=== PATIENT | male | born 1960 | race Caucasian/White ===

== ENCOUNTER 2017-07-05 12:10 | Emergency (ER) | payer OTHER ==
[2017-07-05] MEDS ORDERED: Sodium Chloride 0.9% 10 ML Syringe FLUSH PRN ×2 (12:46→13:31)
[2017-07-05] MEDS ORDERED: Famotidine 20 MG/2 ML SDV IVPUSH ONE (12:46)
--- NOTE | 2017-07-05 12:56 | EDM.PDOC ---
ED HPI GENERAL MEDICAL PROBLEM - General Chief Complaint: Abdominal Pain Stated Complaint: ABDOMINAL PAIN Time Seen by Provider: 07/05/17 12:50 Source of Information: Reports: Patient History Limitations: Reports: No Limitations - History of Present Illness INITIAL COMMENTS - FREE TEXT/NARRATIVE: 56-year-old male presents for evaluation and treatment of abdominal discomfort and bloating. Reports that the symptoms started on Friday night or morning. States that he feels he is "trapped gas ". He describes generalized abdominal discomfort. States that taking water fluid seemed to make things worse. His last intake was around 0700 this morning, he had some waffles, this did not seem to worsen his symptoms. No associated fevers, nausea or vomiting. No urinary symptoms. Patient reports his last colonoscopy was about a year ago. He states that he was given a clean bill of health and they did not find any polyps. He describes after surgery having what sounds to be an ileus. He states that he stayed longer after the colonscopy due to bloating. He states that this feels similar today. He denies any recent travel. Patient reports he was on antibiotics about 2 months ago for bronchitis. Patient has never had an upper endoscopy. Para patient reports he always has a mildly elevated bilirubin. Reports that this seems to be familial. Patient also reports that about 1-2 weeks ago he appreciated a mass to the right breast area. States it is not painful. Has not been evaluated for this thus far. Previous abdominal surgeries include a cholecystectomy. He also had an ERCP. This was about 15 years ago. Abdomen Pain Score (Numeric/FACES): 6 - Related Data Allergies Allergy/AdvReac Type Severity Reaction Status Date / Time Sulfa (Sulfonamide Allergy Cannot Verified 07/05/17 12:17 Antibiotics) Remember Home Meds: Home Meds Omeprazole 20 mg PO DAILY #30 cap.sr 07/05/17 [Rx] Past Medical History HEENT History: Reports: Impaired Vision Gastrointestinal History: Reports: Cholelithiasis, Other (See Below) Musculoskeletal History: Reports: Back Pain, Chronic Dermatologic History: Reports: Other (See Below) Other Dermatologic History: precancerous leasion off lip over one year ago - Past Surgical History HEENT Surgical History: Reports: Tonsillectomy GI Surgical History: Reports: Cholecystectomy, Hernia Repair/Other Social & Family History - Family History Endocrine/Metabolic: Reports: Diabetes, type II Oncologic: Reports: Bladder, Colon, Lung, Metastatic, Ovarian - Tobacco Use Smoking Status *Q: Never Smoker - Caffeine Use Caffeine Use: Reports: Coffee - Recreational Drug Use Recreational Drug Use: No ED ROS GENERAL - Review of Systems Review Of Systems: See Below Constitutional: Denies: Fever, Chills Respiratory: Denies: Shortness of Breath Cardiovascular: Denies: Chest Pain GI/Abdominal: Reports: Abdominal Pain (discomfort), Flatus (continues to pass gas), Hematochezia (x12 Friday associated with constipation). Denies: Constipation, Diarrhea, Nausea, Vomiting : Denies: Dysuria, Hematuria ED EXAM, GI/ABD - Physical Exam Exam: See Below Exam Limited By: No Limitations General Appearance: Alert, WD/WN, No Apparent Distress Respiratory/Chest: No Respiratory Distress, Lungs Clear, Normal Breath Sounds, Other (approximately 2cm in diatmeter movable, non tender, mass to the right breast at the 5 o'clock position) Cardiovascular: Normal Peripheral Pulses, Regular Rate, Rhythm, No Murmur GI/Abdominal Exam: Normal Bowel Sounds, Soft, Non-Tender, Distended. No: Guarding, Rebound Neurological: Alert, Oriented, Normal Cognition Psychiatric: Normal Affect, Normal Mood Skin Exam: Warm, Dry, Normal Color Course - Vital Signs Last Recorded V/S: Last Vital Signs Temp 36.4 C 07/05/17 12:19 Pulse 58 L 07/05/17 12:19 Resp 16 07/05/17 12:19 BP 114/71 07/05/17 12:19 Pulse Ox 96 07/05/17 12:19 - Orders/Labs/Meds Labs: Laboratory Tests 07/05/17 07/05/17 07/05/17 Range/Units 12:37 12:37 12:37 WBC 8.71 (4.23-9.07) K/mm3 RBC 5.49 (4.63-6.08) M/mm3 Hgb 16.5 (13.7-17.5) gm/L Hct 47.2 (40.1-51.0) % MCV 86.0 (79.0-92.2) fl MCH 30.1 (25.7-32.2) pg MCHC 35.0 (32.2-35.5) g/dl RDW Std Deviation 42.3 (35.1-43.9) fL Plt Count 207 (163-337) K/mm3 MPV 10.5 (9.4-12.3) fl Neutrophils % (Manual) 57 (40-60) % Band Neutrophils % 4 (0-10) % Lymphocytes % (Manual) 27 (20-40) % Atypical Lymphs % 0 % Monocytes % (Manual) 7 (2-10) % Eosinophils % (Manual) 5 (0.8-7.0) % Basophils % (Manual) 0 L (0.2-1.2) Platelet Estimate Adequate RBC Morph Comment Normal Sodium 138 (136-145) mEq/L Potassium 3.7 (3.5-5.1) mEq/L Chloride 102 (98-107) mEq/L Carbon Dioxide 29 (21-32) mEq/L Anion Gap 10.7 (5-15) BUN 16 (7-18) mg/dL Creatinine 1.1 (0.7-1.3) mg/dL Est Cr Clr Drug Dosing 75.58 mL/min Estimated GFR (MDRD) > 60 (>60) mL/min BUN/Creatinine Ratio 14.5 (14-18) Glucose 119 H (74-106) mg/dL Calcium 8.9 (8.5-10.1) mg/dL Total Bilirubin 2.2 H (0.2-1.0) mg/dL AST 30 (15-37) U/L ALT 50 (16-63) U/L Alkaline Phosphatase 75 (46-116) U/L C-Reactive Protein 1.3 H* (<1.0) mg/dL Total Protein 7.4 (6.4-8.2) g/dl Albumin 4.0 (3.4-5.0) g/dl Globulin 3.4 gm/dL Albumin/Globulin Ratio 1.2 (1-2) Lipase 250 (73-393) U/L Urine Color (Yellow) Urine Appearance (Clear) Urine pH (5.0-8.0) Ur Specific [place] (1.005-1.030) Urine Protein (Negative) Urine Glucose (UA) (Negative) Urine Ketones (Negative) Urine Occult Blood (Negative) Urine Nitrite (Negative) Urine Bilirubin (Negative) Urine Urobilinogen (0.2-1.0) Ur Leukocyte Esterase (Negative) Urine RBC (0-5) /hpf Urine WBC (0-5) /hpf Ur Epithelial Cells (0-5) /hpf Urine Bacteria (FEW) /hpf Urine Mucus (FEW) /hpf 07/05/17 Range/Units 12:55 WBC (4.23-9.07) K/mm3 RBC (4.63-6.08) M/mm3 Hgb (13.7-17.5) gm/L Hct (40.1-51.0) % MCV (79.0-92.2) fl MCH (25.7-32.2) pg MCHC (32.2-35.5) g/dl RDW Std Deviation (35.1-43.9) fL Plt Count (163-337) K/mm3 MPV (9.4-12.3) fl Neutrophils % (Manual) (40-60) % Band Neutrophils % (0-10) % Lymphocytes % (Manual) (20-40) % Atypical Lymphs % % Monocytes % (Manual) (2-10) % Eosinophils % (Manual) (0.8-7.0) % Basophils % (Manual) (0.2-1.2) Platelet Estimate RBC Morph Comment Sodium (136-145) mEq/L Potassium (3.5-5.1) mEq/L Chloride (98-107) mEq/L Carbon Dioxide (21-32) mEq/L Anion Gap (5-15) BUN (7-18) mg/dL Creatinine (0.7-1.3) mg/dL Est Cr Clr Drug Dosing mL/min Estimated GFR (MDRD) (>60) mL/min BUN/Creatinine Ratio (14-18) Glucose (74-106) mg/dL Calcium (8.5-10.1) mg/dL Total Bilirubin (0.2-1.0) mg/dL AST (15-37) U/L ALT (16-63) U/L Alkaline Phosphatase (46-116) U/L C-Reactive Protein (<1.0) mg/dL Total Protein (6.4-8.2) g/dl Albumin (3.4-5.0) g/dl Globulin gm/dL Albumin/Globulin Ratio (1-2) Lipase (73-393) U/L Urine Color Yellow (Yellow) Urine Appearance Clear (Clear) Urine pH 6.0 (5.0-8.0) Ur Specific [place] 1.015 (1.005-1.030) Urine Protein Negative (Negative) Urine Glucose (UA) Negative (Negative) Urine Ketones Negative (Negative) Urine Occult Blood 1+ H (Negative) Urine Nitrite Negative (Negative) Urine Bilirubin Negative (Negative) Urine Urobilinogen 0.2 (0.2-1.0) Ur Leukocyte Esterase Negative (Negative) Urine RBC 5-10 H (0-5) /hpf Urine WBC 0-5 (0-5) /hpf Ur Epithelial Cells Not seen (0-5) /hpf Urine Bacteria Few (FEW) /hpf Urine Mucus Not seen (FEW) /hpf Meds: Medications Discontinued Medications Generic Name Dose Route Start Last Admin Trade Name Freq PRN Reason Stop Dose Admin Diatrizoate Meglum/Diatrizoate Sod 120 ml 07/05/17 13:31 07/05/17 14:28 Gastrografin 37% PO 07/05/17 13:32 90 ml ONETIME ONE Administration Famotidine 20 mg 07/05/17 12:46 07/05/17 13:02 Pepcid IVPUSH 07/05/17 12:47 20 mg ONETIME ONE Administration Iopamidol 150 ml 07/05/17 13:31 07/05/17 14:28 Isovue-300 (61%) IVPUSH 07/05/17 13:32 125 ml ONETIME ONE Administration Sodium Chloride 10 ml 07/05/17 12:46 07/05/17 13:05 Saline Flush FLUSH 10 ml ASDIRECTED PRN Administration Keep Vein Open Sodium Chloride 10 ml 07/05/17 13:31 07/05/17 14:29 Saline Flush FLUSH 10 ml ONETIME PRN Administration IV FLUSH - Radiology Interpretation Free Text/Narrative:: CT abdomen and pelvis Technique: Multiple axial sections were obtained from above the dome of the diaphragm inferiorly through the pubic symphysis. Intravenous and oral contrast has been given. Delayed images were also obtained through the bladder. Comparison: Prior CT abdomen and pelvis exam of 08/20/11. Findings: Visualized lung bases shows nothing acute. Liver shows mild fatty infiltration. Air is identified within the common bile duct most likely relating to previous intervention at the sphincter of Chi. Previous cholecystectomy is noted. Spleen appears within normal limits. Adrenal glands show no nodule. Pancreas is within normal limits. Adrenal glands show no nodule. Aorta shows no aneurysmal dilatation. No retroperitoneal adenopathy is seen. Kidneys show symmetric contrast enhancement without hydronephrosis or mass. No mesenteric abnormalities are seen. Appendix appears within normal limits. No pelvic mass or adenopathy is seen. Incidental prostate calcifications are noted. Small fat -containing bilateral inguinal hernias are noted. Delayed images shows contrast within the bladder. Bone window settings were reviewed which show scattered degenerative change within the spine with vacuum phenomena seen within the L4-5 and L5-S1 discs. No free fluid or inflammatory change is seen. Impression: 1. Air within the common bile duct most likely representing previous intervention at the sphincter of Chi. 2. Fatty infiltration within the liver and other incidental findings. 3. Nothing acute is appreciated on CT study of the abdomen and pelvis. - Re-Assessments/Exams Free Text/Narrative Re-Assessment/Exam: 07/05/17 16:02 I reviewed the labs and imaging with the patient. I will start him on some omeprazole. Suspected gastritis, possible peptic ulcer disease. Recommend follow -up with primary care provider for further evaluation to possibly discuss an upper endoscopy. I suspect that the mass to the right breast is a cyst, however, I do recommend he have an ultrasound to further evaluate this. This can be done outpatient. again instructed to follow-up with his primary care provider for this. Discharge instructions as documented. Departure - Departure Time of Disposition: 16:05 Disposition: Home, Self-Care 01 Condition: Fair Clinical Impression: Abdominal pain, Breast mass in male - Discharge Information Prescriptions: Omeprazole 20 mg PO DAILY #30 cap.sr Instructions: Abdominal Pain, Adult, Ppic-co-[facility]uj Referrals: Santiago Fu MD [Primary Care Provider] - Forms: ED Department Discharge Additional Instructions: Take the omeprazole as prescribed. 1 cap Daily. Recommend starting something like Gas-X. This is available [id number]. Follow up with your primary care provider this week for recheck of your symptoms. Also recommend discussing ultrasound of the right breast mass for further evaluation. Please return to the ER if your symptoms change or worsen.
[2017-07-05] MEDS ORDERED: Diatrizoate Meglumine/Diatrizoate Sodium 37% 120 ML Bottle PO ONE (13:31)
[2017-07-05] MEDS ORDERED: Iopamidol 612 MG/ML 150 ML Bottle IVPUSH ONE (13:31)
--- NOTE | 2017-07-05 15:09 | CT ---
CT abdomen and pelvis Technique: Multiple axial sections were obtained from above the dome of the diaphragm inferiorly through the pubic symphysis. Intravenous and oral contrast has been given. Delayed images were also obtained through the bladder. Comparison: Prior CT abdomen and pelvis exam of 08/20/11. Findings: Visualized lung bases shows nothing acute. Liver shows mild fatty infiltration. Air is identified within the common bile duct most likely relating to previous intervention at the sphincter of Chi. Previous cholecystectomy is noted. Spleen appears within normal limits. Adrenal glands show no nodule. Pancreas is within normal limits. Adrenal glands show no nodule. Aorta shows no aneurysmal dilatation. No retroperitoneal adenopathy is seen. Kidneys show symmetric contrast enhancement without hydronephrosis or mass. No mesenteric abnormalities are seen. Appendix appears within normal limits. No pelvic mass or adenopathy is seen. Incidental prostate calcifications are noted. Small fat-containing bilateral inguinal hernias are noted. Delayed images shows contrast within the bladder. Bone window settings were reviewed which show scattered degenerative change within the spine with vacuum phenomena seen within the L4-5 and L5-S1 discs. No free fluid or inflammatory change is seen. Impression: 1. Air within the common bile duct most likely representing previous intervention at the sphincter of Chi. 2. Fatty infiltration within the liver and other incidental findings. 3. Nothing acute is appreciated on CT study of the abdomen and pelvis. Diagnostic code #2
== END 2017-07-05 16:20 | disposition home or self-care (01) ==
LOC: JD.ED 12:10
DX: R10.9 Unspecified abdominal pain (principal); N63.0 Unspecified lump in unspecified breast; Z88.2 Allergy status to sulfonamides; Z79.899 Other long term (current) drug therapy
CPT/HCPCS: 36415; 74177; 80053; 81001; 83690; 85025; 86140; 96374; 99284; J7050; Q9963; Q9967

== ENCOUNTER 2019-07-06 15:36 | Emergency (ER) | payer OTHER ==
[2019-07-06] MEDS ORDERED: Aspirin 81 MG Tab.Chew PO ONE (15:52)
[2019-07-06] MEDS ORDERED: LORazepam 2 MG/ML SDV IVPUSH ONE (16:19)
--- NOTE | 2019-07-06 16:25 | EDM.PDOC ---
ED HPI GENERAL MEDICAL PROBLEM - General Chief Complaint: Chest Pain Stated Complaint: CHEST PAIN Time Seen by Provider: 07/06/19 16:18 Source of Information: Reports: Patient, Family (spouse) History Limitations: Reports: No Limitations - History of Present Illness INITIAL COMMENTS - FREE TEXT/NARRATIVE: With central chest pains that have been coming and going since he got up this morning occasional radiation all the way up into his anterior neck and throat. Is it particular on the left side of his jaw all the way up to his ear intermittently. Now he also feels it in the nape of his neck the history is complicated by the fact that he did see cardiology yesterday in [place] and they thought that he should have an angiogram today. He put it off as he had a [place] meeting today and he is due for angiogram tomorrow at noon in [facility]. Early had a CT scan at [facility] with a very high calcium score of greater than 370. His recent symptom complex it is very concerned that he has a gradually progressive acute coronary syndrome. EEG done in the ED by triage nurse shows sinus rhythm at 63/min. There is a axis deviation with a left anterior fascicular block pattern with a QRS . It is extremely anxious of course due to the recent news that he may have underlying coronary disease. He has a brother who is diabetic who has had bypass and 8 stents and a father who also had multiple stents placed due to coronary artery disease. Patient quit smoking 20 years ago. He does have some mild hypertension. New medications are atorvastatin 20 mg added to his treatment plan a week ago and now is on metoprolol extended release or succinate 25 mg daily which she is taken 1 pill. His blood pressure is well controlled at 120/ 82. Onset: Today Onset Date: 07/06/19 (Has been having intermittent chest pains rating up into his anterior neck and posterior neck off and on for several weeks. [place] that he likely has angina pectoris becoming more unstable.) Duration: Hour(s):, Getting Worse Location: Reports: Face (Both sides of his mandible more so on the left than the right also some pain in his anterior neck and central chest), Neck (Pain in the nape of his neck on the right side), Chest ( protruding particularly the lower retrosternal chest. No radiation to the left upper extremity) Quality: Reports: Ache Severity: Moderate Improves with: Reports: None Worsens with: Denies: None, Breathing, Cold Therapy, Eating, Heat Therapy, Movement Context: Denies: Activity, Exercise, Lifting, Sick Contact, Trauma, Other Associated Symptoms: Reports: Chest Pain, Malaise, Weakness. 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 Other medications are new for him) Chest Pain Score (Numeric/FACES): 5 - Related Data Allergies Allergy/AdvReac Type Severity Reaction Status Date / Time Sulfa (Sulfonamide Allergy Cannot Verified 07/06/19 15:47 Antibiotics) Remember Home Meds: Home Meds Omeprazole 20 mg PO DAILY #30 cap.sr 07/05/17 [Rx] Metoprolol Succinate 25 mg PO DAILY 07/06/19 [History] atorvaSTATin [Lipitor] 40 mg PO DAILY 07/06/19 [History] Past Medical History HEENT History: Reports: Impaired Vision Cardiovascular History: Reports: High Cholesterol (And on atorvastatin last week.) Gastrointestinal History: Reports: Cholelithiasis, Other (See Below) Genitourinary History: Reports: Other (See Below) Other Genitourinary History: enlarged prostate Musculoskeletal History: Reports: Back Pain, Chronic Dermatologic History: Reports: Other (See Below) Other Dermatologic History: precancerous leasion off lip over one year ago - Past Surgical History HEENT Surgical History: Reports: Tonsillectomy GI Surgical History: Reports: Cholecystectomy, Hernia Repair/Other Social & Family History - Family History Endocrine/Metabolic: Reports: Diabetes, type II Oncologic: Reports: Bladder, Colon, Lung, Metastatic, Ovarian - Tobacco Use Smoking Status *Q: Never Smoker - Caffeine Use Caffeine Use: Reports: Coffee - Recreational Drug Use Recreational Drug Use: No - Living Situation & Occupation Living situation: Reports: Occupation: Employed ED ROS GENERAL - Review of Systems Review Of Systems: See Below Constitutional: Reports: Malaise, Weakness, Fatigue, Decreased Appetite. Denies : Fever, Chills, Weight Loss HEENT: Reports: No Symptoms Respiratory: Reports: No Symptoms Cardiovascular: Reports: Chest Pain. Denies: Blood Pressure Problem, Claudication, Dyspnea on Exertion, Edema, Lightheadedness, Orthopnea Endocrine: Reports: Fatigue GI/Abdominal: Reports: No Symptoms, Other (GERD. Has had previous cholecystectomy) : Reports: Frequency, Other (BPH.) Musculoskeletal: Reports: Joint Pain (His hips lower back neck at times) Skin: Reports: No Symptoms Neurological: Reports: No Symptoms Psychiatric: Reports: No Symptoms Hematologic/Lymphatic: Reports: No Symptoms Immunologic: Reports: No Symptoms ED EXAM, GENERAL - Physical Exam Exam: See Below Exam Limited By: No Limitations General Appearance: Alert, WD/WN, Anxious, Mild Distress, Other (Temperature is 37.2 heart rate is 61 is sinus respiratory 16 BP 149/82 pulse ox 98% on room air ) Eye Exam: Bilateral Eye: Normal Inspection Head: Atraumatic, Normocephalic Neck: Normal Inspection, Supple, Non-Tender, Full Range of Motion, Other. No: Carotid Bruit, Lymphadenopathy (L), Lymphadenopathy (R) Respiratory/Chest: No Respiratory Distress (No JVD), Lungs Clear, Normal Breath Sounds, No Accessory Muscle Use, Chest Non-Tender Cardiovascular: Normal Peripheral Pulses, Regular Rate, Rhythm, No Edema, No Gallop, No Murmur, No Rub Peripheral Pulses: 3+: Posterior Tibial (L), Posterior Tibial (R), Dorsalis Pedis (L), Dorsalis Pedis (R) GI/Abdominal: Normal Bowel Sounds, Soft, Non-Tender, No Organomegaly, No Abnormal Bruit, No Mass, Pelvis Stable, Other (But notes a previous laparoscopic cholecystectomy.) Back Exam: Normal Inspection, Full Range of Motion. No: CVA Tenderness (L), CVA Tenderness (R) Extremities: Normal Inspection, Normal Range of Motion, Non-Tender Neurological: Alert, Oriented, CN II-XII Intact, Normal Cognition, Normal Gait Psychiatric: Anxious Skin Exam: Warm, Dry, Intact, Normal Color, No Rash EKG INTERPRETATION EKG Date: 07/06/19 Time: 15:42 Rhythm: NSR Rate (Beats/Min): 63 [place]: LAD-Left [place] Deviation P-Wave: Present (Is 40 degrees left anterior fascicular block pattern) QRS: Other (Sitter borderline left ventricular hypertrophy tall R wave in lead I.) ST-T: Other (T wave is flattened in aVF. Nonspecific finding) QT: Normal EKG Interpretation Comments: Normal ECG with no signs of ischemia Course - Vital Signs Last Recorded V/S: Last Vital Signs Temp 36.5 C 07/06/19 18:55 Pulse 58 L 07/06/19 18:55 Resp 16 07/06/19 18:55 BP 99/73 07/06/19 18:55 Pulse Ox 96 07/06/19 18:55 - Orders/Labs/Meds Orders: Active Orders 24 hr Category Date Time Status EKG 12 Lead [EKG Documentation Completion] [RC] STAT Care 07/06/19 15:53 Active Labs: Laboratory Tests 07/06/19 07/06/19 07/06/19 Range/Units 15:49 15:49 15:49 WBC 10.87 H (4.23-9.07) K/mm3 RBC 5.46 (4.63-6.08) M/mm3 Hgb 16.3 (13.7-17.5) gm/dl Hct 47.4 (40.1-51.0) % MCV 86.8 (79.0-92.2) fl MCH 29.9 (25.7-32.2) pg MCHC 34.4 (32.2-35.5) g/dl RDW Std Deviation 43.6 (35.1-43.9) fL Plt Count 245 (163-337) K/mm3 MPV 10.5 (9.4-12.3) fl Neut % (Auto) 54.2 (34.0-67.9) % Lymph % (Auto) 32.6 (21.8-53.1) % [place] % (Auto) 10.2 (5.3-12.2) % Eos % (Auto) 2.3 (0.8-7.0) Baso % (Auto) 0.4 (0.1-1.2) % Neut # (Auto) 5.90 H (1.78-5.38) K/mm3 Lymph # (Auto) 3.54 (1.32-3.57) K/mm3 [place] # (Auto) 1.11 H (0.30-0.82) K/mm3 Eos # (Auto) 0.25 (0.04-0.54) K/mm3 Baso # (Auto) 0.04 (0.01-0.08) K/mm3 Manual Slide Review Normal smear ESR (0-15) mm/hr PT (9.7-12.0) SECONDS INR APTT (22-31) SECONDS D-Dimer, Quantitative (0.19-0.50) mg/L Sodium 141 (136-145) mEq/L Potassium 3.8 (3.5-5.1) mEq/L Chloride 106 (98-107) mEq/L Carbon Dioxide 24 (21-32) mEq/L Anion Gap 14.8 (5-15) BUN 22 H (7-18) mg/dL Creatinine 1.1 (0.7-1.3) mg/dL Est Cr Clr Drug Dosing 73.74 mL/min Estimated GFR (MDRD) > 60 (>60) mL/min BUN/Creatinine Ratio 20.0 H (14-18) Glucose 115 H (74-106) mg/dL Calcium 8.7 (8.5-10.1) mg/dL Magnesium (1.8-2.4) mg/dl Total Bilirubin 2.4 H (0.2-1.0) mg/dL AST 29 (15-37) U/L ALT 51 (16-63) U/L Alkaline Phosphatase 79 (46-116) U/L CK-MB (CK-2) 1.0 (0-3.6) ng/ml Troponin I < 0.017 (0.00-0.056) ng/mL C-Reactive Protein (<1.0) mg/dL NT-Pro-B Natriuret Pep (0-125) pg/mL Total Protein 7.6 (6.4-8.2) g/dl Albumin 4.1 (3.4-5.0) g/dl Globulin 3.5 gm/dL Albumin/Globulin Ratio 1.2 (1-2) PSA Screen (0.0-4.0) ng/mL Urine Color (Yellow) Urine Appearance (Clear) Urine pH (5.0-8.0) Ur Specific Brady (1.005-1.030) Urine Protein (Negative) Urine Glucose (UA) (Negative) Urine Ketones (Negative) Urine Occult Blood (Negative) Urine Nitrite (Negative) Urine Bilirubin (Negative) Urine Urobilinogen (0.2-1.0) Ur Leukocyte Esterase (Negative) Urine RBC (0-5) /hpf Urine WBC (0-5) /hpf Ur Squamous Epith Cells (0-5) /hpf Urine Bacteria (FEW) /hpf Urine Mucus (FEW) /hpf 07/06/19 07/06/19 07/06/19 Range/Units 15:49 15:49 15:49 WBC (4.23-9.07) K/mm3 RBC (4.63-6.08) M/mm3 Hgb (13.7-17.5) gm/dl Hct (40.1-51.0) % MCV (79.0-92.2) fl MCH (25.7-32.2) pg MCHC (32.2-35.5) g/dl RDW Std Deviation (35.1-43.9) fL Plt Count (163-337) K/mm3 MPV (9.4-12.3) fl Neut % (Auto) (34.0-67.9) % Lymph % (Auto) (21.8-53.1) % [place] % (Auto) (5.3-12.2) % Eos % (Auto) (0.8-7.0) Baso % (Auto) (0.1-1.2) % Neut # (Auto) (1.78-5.38) K/mm3 Lymph # (Auto) (1.32-3.57) K/mm3 [place] # (Auto) (0.30-0.82) K/mm3 Eos # (Auto) (0.04-0.54) K/mm3 Baso # (Auto) (0.01-0.08) K/mm3 Manual Slide Review ESR 10 (0-15) mm/hr PT 10.7 (9.7-12.0) SECONDS INR 0.98 APTT 25 (22-31) SECONDS D-Dimer, Quantitative < 0.19 L (0.19-0.50) mg/L Sodium (136-145) mEq/L Potassium (3.5-5.1) mEq/L Chloride (98-107) mEq/L Carbon Dioxide (21-32) mEq/L Anion Gap (5-15) BUN (7-18) mg/dL Creatinine (0.7-1.3) mg/dL Est Cr Clr Drug Dosing mL/min Estimated GFR (MDRD) (>60) mL/min BUN/Creatinine Ratio (14-18) Glucose (74-106) mg/dL Calcium (8.5-10.1) mg/dL Magnesium 2.2 (1.8-2.4) mg/dl Total Bilirubin (0.2-1.0) mg/dL AST (15-37) U/L ALT (16-63) U/L Alkaline Phosphatase (46-116) U/L CK-MB (CK-2) (0-3.6) ng/ml Troponin I (0.00-0.056) ng/mL C-Reactive Protein 0.5 (<1.0) mg/dL NT-Pro-B Natriuret Pep (0-125) pg/mL Total Protein (6.4-8.2) g/dl Albumin (3.4-5.0) g/dl Globulin gm/dL Albumin/Globulin Ratio (1-2) PSA Screen (0.0-4.0) ng/mL Urine Color (Yellow) Urine Appearance (Clear) Urine pH (5.0-8.0) Ur Specific Brady (1.005-1.030) Urine Protein (Negative) Urine Glucose (UA) (Negative) Urine Ketones (Negative) Urine Occult Blood (Negative) Urine Nitrite (Negative) Urine Bilirubin (Negative) Urine Urobilinogen (0.2-1.0) Ur Leukocyte Esterase (Negative) Urine RBC (0-5) /hpf Urine WBC (0-5) /hpf Ur Squamous Epith Cells (0-5) /hpf Urine Bacteria (FEW) /hpf Urine Mucus (FEW) /hpf 07/06/19 07/06/19 07/06/19 Range/Units 15:49 15:49 18:20 WBC (4.23-9.07) K/mm3 RBC (4.63-6.08) M/mm3 Hgb (13.7-17.5) gm/dl Hct (40.1-51.0) % MCV (79.0-92.2) fl MCH (25.7-32.2) pg MCHC (32.2-35.5) g/dl RDW Std Deviation (35.1-43.9) fL Plt Count (163-337) K/mm3 MPV (9.4-12.3) fl Neut % (Auto) (34.0-67.9) % Lymph % (Auto) (21.8-53.1) % [place] % (Auto) (5.3-12.2) % Eos % (Auto) (0.8-7.0) Baso % (Auto) (0.1-1.2) % Neut # (Auto) (1.78-5.38) K/mm3 Lymph # (Auto) (1.32-3.57) K/mm3 [place] # (Auto) (0.30-0.82) K/mm3 Eos # (Auto) (0.04-0.54) K/mm3 Baso # (Auto) (0.01-0.08) K/mm3 Manual Slide Review ESR (0-15) mm/hr PT (9.7-12.0) SECONDS INR APTT (22-31) SECONDS D-Dimer, Quantitative (0.19-0.50) mg/L Sodium (136-145) mEq/L Potassium (3.5-5.1) mEq/L Chloride (98-107) mEq/L Carbon Dioxide (21-32) mEq/L Anion Gap (5-15) BUN (7-18) mg/dL Creatinine (0.7-1.3) mg/dL Est Cr Clr Drug Dosing mL/min Estimated GFR (MDRD) (>60) mL/min BUN/Creatinine Ratio (14-18) Glucose (74-106) mg/dL Calcium (8.5-10.1) mg/dL Magnesium (1.8-2.4) mg/dl Total Bilirubin (0.2-1.0) mg/dL AST (15-37) U/L ALT (16-63) U/L Alkaline Phosphatase (46-116) U/L CK-MB (CK-2) (0-3.6) ng/ml Troponin I (0.00-0.056) ng/mL C-Reactive Protein (<1.0) mg/dL NT-Pro-B Natriuret Pep 40 (0-125) pg/mL Total Protein (6.4-8.2) g/dl Albumin (3.4-5.0) g/dl Globulin gm/dL Albumin/Globulin Ratio (1-2) PSA Screen 0.4 (0.0-4.0) ng/mL Urine Color Yellow (Yellow) Urine Appearance Clear (Clear) Urine pH 6.5 (5.0-8.0) Ur Specific [place] > or = 1.030 (1.005-1.030) Urine Protein Negative (Negative) Urine Glucose (UA) Negative (Negative) Urine Ketones Negative (Negative) Urine Occult Blood 1+ H (Negative) Urine Nitrite Negative (Negative) Urine Bilirubin Negative (Negative) Urine Urobilinogen 1.0 (0.2-1.0) Ur Leukocyte Esterase Negative (Negative) Urine RBC 0-5 (0-5) /hpf Urine WBC 0-5 (0-5) /hpf Ur Squamous Epith Cells 0-5 (0-5) /hpf Urine Bacteria Few (FEW) /hpf Urine Mucus Few (FEW) /hpf Meds: Medications Discontinued Medications Generic Name Dose Route Start Last Admin Trade Name Maggie PRN Reason Stop Dose Admin Aspirin 324 mg 07/06/19 15:52 07/06/19 17:00 Aspirin PO 07/06/19 15:53 324 mg ONETIME ONE Administration Nitroglycerin/Dextrose 25 mg in 250 mls @ 6 mls/hr 07/06/19 16:30 07/06/19 17 :00 Nitroglycerin 25 Mg/D5w 250 Ml IV 10 mcg/min TITRATE RUTH 6 mls/hr Administration Protocol 10 MCG/MIN Lorazepam 1 mg 07/06/19 16:19 07/06/19 16:55 Ativan IVPUSH 07/06/19 16:20 1 mg ONETIME ONE Administration - Radiology Interpretation Free Text/Narrative:: 58-year-old male presents to the ED with intermittent chest pains central chest retrosternal chest rating up into his anterior neck particular both sides of his mandible. Feels a particular on the left side up to his left ear. Intermittent pain in the nape of his neck particular on the right side. He was seen by cardiology yesterday in [place] and identified to be in need of a angiogram primarily based on a very high calcium score on CT of the heart. This was done at [facility] across the street. Been getting some chest pains on exertion and mandibular pain on exertion off and on for the last several weeks. He has a fair strong family history with one brother and father of afflicted by coronary artery disease. He stopped smoking 20 years ago. He has not hypertensive he has started on atorvastatin a week ago and metoprolol succinate 25 mg yesterday which he is taken 1 tablet. He is on a baby aspirin at bedtime. Distal ECG does not show any signs of ischemia. Plan he will have cardiac work-up started. He will be given 324 mg of aspirin chewed. He will be started a nitro drip at 10 mcg/min. He will be given Ativan 1 mg IV as he is quite anxious. Await his cardiac enzymes - Re-Assessments/Exams Free Text/Narrative Re-Assessment/Exam: 07/06/19 16:33 chest x-ray done portably reveals mild tortuous thoracic aorta. Cardiac silhouette is otherwise normal in size. Visualized lung kirkpatrick are clear. No pleural effusions no pneumothorax. 07/06/19 16:54 Continues to get twinges of chest pain mostly sharp and stabbing his parasternal retrosternal area and occasional twinges of pain up into his mandible. Is yet to start his nitro drip. 07/06/19 17:43 Labs reveal a slight elevation of the white count of 10.87. The differential is 54% neutrophils 32% lymphocytes. Hemoglobin is 16.3 with hematocrit of 47.4 suggesting perhaps a very mild hemoconcentration. Platelet count is 245,000. His smear is normal. Sed rate is 10. PT is 10.7 with an INR of 0.98 PTT is 25 with a d-dimer of less than 0.19. Sodium is 141 with a potassium of 3.8 chloride 106 with a bicarb of 24. Anion gap is 14.8 BUN is 22 with a creatinine of 1.1. Glucose is 115. 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 CK-MB fraction was 1.0 with a troponin I of less than 0.017. C-reactive protein is 0.5 BNP is 40 total protein 7.6 with an albumin fraction of 4.1 07/06/19 18:08 Plan will be to get him up walking in the hallway at least 3 times at a fairly vigorous pace ie a Poorman`s stress test and see if he develops any symptoms off the nitro drip. 07/06/19 18:50: Patient did very well walking in the hallway with no recurrence of chest pain. Walked briskly 3 times around the department. Therefore he will be discharged to home. He will be traveling to [place] tomorrow morning for planned angiogram at 12:00 central standard time. He will return to the ED if he develops any central chest pressure pain. Departure - Departure Time of Disposition: 18:40 Disposition: Home, Self-Care 01 Reason for Transfer *Q: Other Condition: Fair Clinical Impression: Non-cardiac chest pain, Atypical chest pain Instructions: Nonspecific Chest Pain, [id number] Referrals: Santiago Fu MD [Primary Care Provider] - Forms: ED Department Discharge Additional Instructions: Evaluation in the emergency room this afternoon due to development of recurrent intermittent sharp stabbing pains along the sternum rating up into the side of your jaw both sides worse on the left as compared to the right and also pressure in the nape of the neck on the right side. He discovered calcium score to be very high on CT scan of the heart. Therefore booked for an angiogram of your heart tomorrow to make sure you do not have any narrowing of the coronary arteries. The investigations done through the emergency room today showed a normal ECG. Chest x-ray was normal laboratory work-up revealed no signs of elevated heart markers to indicate any related heart disease. He was treated with nitroglycerin and aspirin until the labs came back and reassured us that they were normal. You walked around the department 3 times at a fairly brisk pace with no exacerbation of chest pain or pressure. At this time we will be discharged to home with plans to travel to [place] tomorrow morning for angiogram around noon central standard time. Return to the ED if you develop any heavy central chest pressure discomfort that will go away within 5 minutes. These of your labs are going to be sent with you and your ECG. I said your chest x-ray to [facility] in [place]. Sepsis Event Note - Evaluation Sepsis Screening Result: No Definite Risk - Focused Exam Vital Signs: Vital Signs Temp Pulse Resp BP Pulse Ox 07/06/19 18:55 36.5 C 58 L 16 99/73 96 07/06/19 18:15 36.3 C 68 20 115/74 95 07/06/19 15:43 37.2 C 61 16 149/82 H 98 Date Exam was Performed: 07/06/19 Time Exam was Performed: 19:59 - My Orders Last 24 Hours: My Active Orders 07/06/19 15:53 EKG 12 Lead [EKG Documentation Completion] [RC] STAT - Assessment/Plan Last 24 Hours: My Active Orders 07/06/19 15:53 EKG 12 Lead [EKG Documentation Completion] [RC] STAT
[2019-07-06] MEDS ORDERED: Nitroglycerin/D5W 25 MG/250 ML BOTTLE IV SCH (16:30)
--- NOTE | 2019-07-06 16:33 | CR ---
Chest: Portable view of the chest was obtained. Comparison: No prior chest imaging. Heart size is within normal limits for portable technique. Tortuous thoracic aorta is noted. Lungs are clear with no acute parenchymal change. Bony structures are grossly intact. Impression: 1. Nothing acute is seen on portable chest x-ray. Diagnostic code #1 This report was dictated in [place] Standard Time
== END 2019-07-06 18:55 | disposition home or self-care (01) ==
LOC: JD.ED 15:36
DX: R07.89 Other chest pain (principal); R07.1 Chest pain on breathing; E78.00 Pure hypercholesterolemia, unspecified; Z88.2 Allergy status to sulfonamides; Z79.899 Other long term (current) drug therapy
CPT/HCPCS: 36415; 71045; 80053; 81001; 82553; 83735; 83880; 84484; 85025; 85379; 85610; 85652; 85730; 86140; 93005; 96365; 96375; 99285; A9270; G0103; J2060; J3490; 93010